=== PATIENT | male | born 1995 | race Caucasian/White ===

== ENCOUNTER 2022-09-17 06:56 | Outpatient (CLI) | payer OTHER ==
[~2022-09-17] VITALS: Ht 177.8 cm; Wt 86.2 kg
[2022-09-17] MEDS ORDERED: albuterol 2.5 MG/3 ML nebule NEB PRN (07:30)
== END 2022-09-17 23:59 | disposition home or self-care (01) ==
LOC: RT 06:56
PROVIDERS: ATTEND Chiropractor
DX: R94.2 Abnormal results of pulmonary function studies (principal); J45.909 Unspecified asthma, uncomplicated; J98.4 Other disorders of lung; Z87.891 Personal history of nicotine dependence; Z79.899 Other long term (current) drug therapy
CPT/HCPCS: 94060; 94760

== ENCOUNTER 2023-05-06 08:35 | Outpatient (CLI) | payer OTHER | END 2023-05-06 23:59 | disposition home or self-care (01) | LOC: RAD 08:35 | PROVIDERS: ATTEND Chiropractor | DX: S62.91XA Unspecified fracture of right hand, initial encounter for closed fracture (principal); X58.XXXA Exposure to other specified factors, initial encounter; Y93.89 Activity, other specified; Y92.89 Other specified places as the place of occurrence of the external cause; Y99.8 Other external cause status | CPT/HCPCS: 73130 ==

== ENCOUNTER 2023-07-08 11:53 | Outpatient (CLI) | payer OTHER | END 2023-07-08 23:59 | disposition home or self-care (01) | LOC: RAD 11:53 | PROVIDERS: ATTEND Chiropractor | DX: S92.812D Other fracture of left foot, subsequent encounter for fracture with routine healing (principal); X58.XXXD Exposure to other specified factors, subsequent encounter | CPT/HCPCS: 73620 ==